=== PATIENT | male | born 1990 | race African-American/Black ===

== ENCOUNTER 2019-05-09 14:22 | Emergency (ER) | payer SELFPAY ==
[~2019-05-09] VITALS: Ht 167.6 cm; Wt 81.8 kg
[2019-05-09 14:56] VITALS: Ht 167.6 cm; Wt 81.8 kg
[2019-05-09] MEDS ORDERED: TORADOL10 MG PO (19:14)
[2019-05-09] MEDS ORDERED: PENICILLIN V P500 MG PO (19:14)
[2019-05-09 19:45] VITALS: BP 149/76
== END 2019-05-09 19:45 | disposition home or self-care (01) ==
LOC: D.ER 14:22
DX: K02.9 Dental caries, unspecified (principal); K08.89 Other specified disorders of teeth and supporting structures